=== PATIENT | male | born 1990 | race African-American/Black ===

== ENCOUNTER 2016-08-15 15:05 | Emergency (ER) | payer OTHER ==
[~2016-08-15] VITALS: Ht 185.4 cm; Wt 118.7 kg
[2016-08-15] MEDS ORDERED: MOTRIN600 MG PO (15:23)
[2016-08-15 15:43] VITALS: BP 145/84
== END 2016-08-15 15:44 ==
LOC: EME 15:05
DX: S09.90XA Unspecified injury of head, initial encounter (principal); W19.XXXA Unspecified fall, initial encounter
CPT/HCPCS: 99281; 99283